=== PATIENT | male | born 1990 | race Caucasian/White ===

== ENCOUNTER 2022-12-08 08:49 | Emergency (ER) | payer OTHER | END 2022-12-08 09:13 | disposition home or self-care (01) | LOC: DL.ED 08:49 | DX: S86.112A Strain of other muscle(s) and tendon(s) of posterior muscle group at lower leg level, left leg, initial encounter (principal); X50.1XXA Overexertion from prolonged static or awkward postures, initial encounter | CPT/HCPCS: 99282; 99283 ==